=== PATIENT | female | born 1930 | race Caucasian/White ===

== ENCOUNTER 2017-01-26 11:03 | Inpatient (IN) | payer OTHER | END 2017-01-27 16:12 | disposition home or self-care (01) | DRG 310 | LOC: 2N 11:03 | PROC: 5A2204Z Restoration of Cardiac Rhythm, Single (ICD-10-PCS; principal; 2017-01-27) | DX: I48.0 Paroxysmal atrial fibrillation (principal) ==

== ENCOUNTER 2017-03-09 19:43 | Inpatient (IN) | payer OTHER ==
[~2017-03-09] VITALS: Ht 162.6 cm; Wt 81.6 kg
--- NOTE | ~2017-03-09 | HC ---
[facility] [place] [address] CONSULTATION Name: ANGELINA REEVES Room #: 432-P [facility] IN M.R.#: [id number] Admission: 03/09/17 Attend Phys: Sanjeev Clements MD Discharge: 03/16/17 Date of : [birth year] Report #: [id number] THIS REPORT FOR: //name// CC: Josey Clements DATE OF SERVICE: 03/14/2017 HISTORY OF PRESENT ILLNESS: The patient is an 87-year-old white female admitted with left hip pain, tripped over a rug. She was noted to have generalized weakness and was diagnosed with urinary tract infection. She also has diverticulitis. She was noted to have uncontrolled hypertension. She is being seen in rehabilitation medicine consultation. PAST MEDICAL HISTORY: Atrial fibrillation, hypothyroidism, cholecystectomy, diverticulitis, hysterectomy, appendectomy, ankle repair. MEDICATIONS: Please see the full medication listing. HABITS: No history of tobacco or alcohol abuse. FAMILY HISTORY: Heart disease in father and diabetes in mother. ALLERGIES: CODEINE. SOCIAL HISTORY: House, alone. There are no steps. She does have a stair glide. She use a cane. Involved [id number]. REVIEW OF SYSTEMS: Did not offer any current complaints of chest pain, shortness of breath or abdominal discomfort. No focal extremity pain complaints. Complains of overall generalized weakness. PHYSICAL EXAMINATION: GENERAL: Pleasant 87-year-old white female, somewhat younger than stated age. VITAL SIGNS: Temperature 97.7, pulse 56, respirations 22, blood pressure 149/54. She is alert, pleasant. HEENT: Appeared to be benign. NEUROLOGIC: Cranial nerves are grossly intact. Facies are symmetric. Functional range of motion of both upper extremities. Strength is grade 4-/5. DTRs are trace to 1. Lower extremities functional range of motion with strength grade 4-/5. DTRs are trace to 1. She is min assist with sit to supine and gait was 150 feet min assist with a front-wheeled walker. ASSESSMENT: An 87-year-old white female with the following problem list: 1. Generalized weakness and debilitation. 2. Urinary tract infection. [address] [address] CONSULTATION Name: ANGELINA REEVES Room #: 432-P [facility] IN M.R.#: [id number] Admission: 03/09/17 Attend Phys: Sanjeev Clements MD Discharge: 03/16/17 Date of : [birth year] Report #: [id number] 3. Diverticulitis. 4. Uncontrolled hypertension. 5. Hypothyroidism. PLAN: I do not see that she would meet diagnostic criteria for an acute -[facility] inpatient rehabilitation stay. Discussion with the social sciences research scientist who will be discussing other options with the patient and her [id number]-[id number]. Thank you for asking us to assist in this patient's care. <ELECTRONICALLY SIGNED> By: Ric Granica MD 03/21/17 1116 [id number] Ric Garnica MD /QUINCY
--- NOTE | ~2017-03-09 | EKG ---
[address] [address] ELECTROCARDIOGRAM REPORT Name: ANGELINA REEVES Room #: 170-9 ADM IN M.R.#: [id number] Admission: 03/09/17 Attend Phys: Sanjeev Clements MD Discharge: Date of : [birth year] Report #: [id number] THIS REPORT FOR: //name// [facility] ED Test Date: 2017-03-09 Test Time: 19:49:50 Pat Name: ANGELINA REEVES Department: Room: 170 Gender: F Advertising Campaign Manager: [id number] : [id number] Requested By: Lashonda Sanchez Order Number: [id number] MD: Tanmay Staton Measurements Intervals [place] Rate: 59 P: [place]: QRS: -27 QRSD: 97 T: 37 QT: 475 QTc: 471 Interpretive Statements Atrial fibrillation Borderline left axis deviation Compared to ECG 07/22/2004 08:34:58 Sinus rhythm no longer present Electronically Signed On 03-09-2017 22:43:35 CDT by Tanmay Staton [email or web address] <ELECTRONICALLY SIGNED> By: Tanmay Staton MD 03/09/17 [id number] Tanmay Staton MD /LAVELLE
[~2017-03-09 19:43] MED LIST: CENTRUM SILVER1 EAC4 PO; ELIQUIS5 MG PO; LEVOTHYROXIN0.125 M1 PO; MOBIC7.5 MG PO; OSTEO BI-FLEX1 EAC1 PO; PACERONE 200 M200 M1 PO
[2017-03-09 19:44] VITALS: BP 185/67
[2017-03-09 20:14] LABS: ABSOLUTE NEUTROPHILS 5.5 thou/uL (1.4-8.2); BASOPHILS 1.1 % (0.0-2.0); HEMATOCRIT 45.5 % (37.0-47.0); HEMOGLOBIN 15.3 gm/dL (12.0-15.0); LYMPHOCYTES 13.8 % (24.0-44.0); MCH 30.8 pg (26.0-34.0); MCHC 33.6 g/dL (28.0-37.0); MCV 91.8 fL (80.0-100.0); MONOCYTES 8.3 % (1.0-8.0); PLATELET COUNT 157 thou/uL (150-400); POLYS 75.8 % (36.0-66.0); RBC 4.95 mil/uL (4.20-5.00); RDW 13.5 % (10.5-14.5); WBC 7.2 thou/uL (4.0-11.0)
[2017-03-09 20:21] LABS: MANUAL DIFF NO
[2017-03-09 20:37] LABS: ALBUMIN 3.7 g/dL (3.4-5.0); CALCIUM 9.8 mg/dL (8.5-10.1); POTASSIUM 4.1 mmol/L (3.5-5.1); TOTAL BILIRUBIN 1.2 mg/dL (<0.1-1.0); TOTAL PROTEIN 7.3 g/dL (6.4-8.2); TROPONIN-I 0.06 ng/mL (<0.04-0.07)
[2017-03-09 21:00] LABS: URINE BILIRUBIN NEGATIVE (Negative); URINE BLOOD TRACE (Negative); URINE COLOR YELLOW; URINE GLUCOSE-RANDOM* NEGATIVE (Negative); URINE KETONES TRACE (Negative); URINE NITRITE POSITIVE (Negative); URINE PROTEIN (DIPSTICK) TRACE (Negative); URINE SPECIFIC GRAVITY 1.025 (1.003-1.035); URINE UROBILINOGEN 0.2 E.U./dl (0.2-1.0)
[2017-03-09 21:09] LABS: CRYSTALS None Seen /LPF (None Seen); SQUAMOUS 0-3 Few /LPF (0-3); URINE WBC 6-15 Few /HPF (0-5)
[2017-03-09 21:10] LABS: BACTERIA >30 Many /HPF (None Seen); CASTS None Seen /LPF (None Seen); URINE RBC None Seen /HPF (0-2)
[2017-03-09 22:47] VITALS: BP 176/75
[2017-03-10 04:17] VITALS: BP 148/59
[2017-03-10 08:12] VITALS: BP 173/62
[2017-03-10 12:21] VITALS: BP 168/72
[2017-03-10 15:36] VITALS: BP 183/43
[2017-03-10 21:30] VITALS: BP 156/70
[2017-03-11 03:40] VITALS: BP 158/54
[2017-03-11 11:37] LABS: HEMATOCRIT 43.7 % (37.0-47.0); HEMOGLOBIN 14.5 gm/dL (12.0-15.0); MCH 30.1 pg (26.0-34.0); MCHC 33.2 g/dL (28.0-37.0); MCV 90.8 fL (80.0-100.0); RBC 4.81 mil/uL (4.20-5.00); RDW 13.1 % (10.5-14.5); WBC 7.5 thou/uL (4.0-11.0)
[2017-03-11 11:50] LABS: CALCIUM 9.2 mg/dL (8.5-10.1); MAGNESIUM 1.9 mg/dL (1.8-2.4); POTASSIUM 4.1 mmol/L (3.5-5.1)
[2017-03-11 15:48] VITALS: BP 163/54
[2017-03-12 03:53] VITALS: BP 176/62
[2017-03-12 07:51] VITALS: BP 152/60
[2017-03-12 16:44] VITALS: BP 168/62
[2017-03-12 19:33] VITALS: BP 198/71
[2017-03-13 03:56] VITALS: BP 189/78
[2017-03-13 07:42] LABS: HEMATOCRIT 42.5 % (37.0-47.0); HEMOGLOBIN 14.2 gm/dL (12.0-15.0); MCH 30.5 pg (26.0-34.0); MCHC 33.3 g/dL (28.0-37.0); MCV 91.4 fL (80.0-100.0); RBC 4.66 mil/uL (4.20-5.00); RDW 13.4 % (10.5-14.5); WBC 6.8 thou/uL (4.0-11.0)
[2017-03-13 07:54] LABS: POTASSIUM 3.8 mmol/L (3.5-5.1)
[2017-03-13 08:15] VITALS: BP 191/75
[2017-03-13 15:15] VITALS: BP 148/53
[2017-03-13 19:30] VITALS: BP 165/41
[2017-03-13 23:29] VITALS: BP 168/58
[2017-03-14 04:01] VITALS: BP 142/46
[2017-03-14 07:30] VITALS: BP 149/54
[2017-03-14] MEDS ORDERED: TYLENOL325 MG PO (13:50)
[2017-03-14] MEDS ORDERED: VOLTAREN GEL 1100 G2 TOP (13:50)
[2017-03-14] MEDS ORDERED: ACIDOPHILUS PR1 EACH PO (13:50)
[2017-03-14] MEDS ORDERED: CIPRO500 MG PO (13:50)
[2017-03-14] MEDS ORDERED: FELODIPINE ER10 MG PO (13:50)
[2017-03-14] MEDS ORDERED: PANTOPRAZOLE SO40 M1 PO (13:50)
[2017-03-14] MEDS ORDERED: FLAGYL500 MG PO (13:50)
[2017-03-14 16:00] VITALS: BP 150/52
[2017-03-14 20:00] VITALS: BP 149/42
[2017-03-15 04:00] VITALS: BP 156/67
[2017-03-15 07:15] VITALS: BP 150/62
[2017-03-15 16:30] VITALS: BP 154/68
[2017-03-15 20:29] VITALS: BP 152/58
[2017-03-16 02:59] VITALS: BP 159/72
[2017-03-16 08:00] VITALS: BP 143/57
[2017-03-16] MEDS ORDERED: HYDROCHLOROTH12.5 M1 PO (11:35)
== END 2017-03-16 13:27 | DRG 690 ==
LOC: ER 19:43 → EROBS 22:06 → 4E 22:06
PROVIDERS: Internal Medicine; Physician Assistant
DX: N39.0 Urinary tract infection, site not specified (principal); K57.92 Diverticulitis of intestine, part unspecified, without perforation or abscess without bleeding; I48.2 Chronic atrial fibrillation; I10 Essential (primary) hypertension; E03.9 Hypothyroidism, unspecified; Z90.710 Acquired absence of both cervix and uterus; Z90.49 Acquired absence of other specified parts of digestive tract; Z82.49 Family history of ischemic heart disease and other diseases of the circulatory system; Z88.6 Allergy status to analgesic agent; Z83.3 Family history of diabetes mellitus; Z79.899 Other long term (current) drug therapy
CPT/HCPCS: 10084; 10183